=== PATIENT | male | born 1945 | race Caucasian/White ===

== ENCOUNTER 2024-02-16 20:53 | Inpatient (IN) | payer OTHER ==
[2024-02-16] MEDS ORDERED: ALBUTEROL SO4 2.5/IPRATROPIUM 0.5 INH SOL 3 ML VIAL.NEB. NEB ONE (21:30)
[2024-02-16] MEDS: ALBUTEROL SO4 2.5/IPRATROPIUM 0.5 INH SOL 3 ML VIAL.NEB. NEB ONE (21:38)
[2024-02-16 21:49] LABS: ALLENS TEST POSITIVE; ARTERIAL BLD GAS O2 SATURATION 92.4 % (95-98); ARTERIAL BLOOD GAS BASE EXCESS -7.2 mmol/L (-2-2); ARTERIAL BLOOD GAS PO2 68.6 mmHg (80-100); ARTERIAL BLOOD GAS pH 7.313 (7.350-7.450)
[2024-02-16 21:50] LABS: VENT MODE IPAP14; VENT RATE 14
[2024-02-16] MEDS ORDERED: methylPREDNISolone NA SUCC 125 MG/2 ML VIAL ONE (21:52)
[2024-02-16] MEDS: methylPREDNISolone NA SUCC 125 MG/2 ML VIAL IVPUSH ONE (21:57)
[2024-02-16 21:58] VITALS: BMI 21.5
[2024-02-16 22:04] LABS: HEMATOCRIT 40.1 % (35.4-49); HEMOGLOBIN 12.4 GM/dL (11.7-16.9); MCH 29.3 pg (25.7-33.7); MCHC 30.8 g/dl (32.0-35.9); MEAN CELL VOLUME 95.1 fl (80-96); MEAN PLT VOLUME 12.6 fl (7.5-11.1); PLATELET COUNT 265 10^3/uL (134-434); RBC 4.22 M/mm3 (4.00-5.60); RDW 16.8 % (11.9-15.9); WHITE BLOOD COUNT 25.6 K/mm3 (4.0-10.0)
[2024-02-16 22:11] LABS: INR 1.11 (0.83-1.09); PROTHROMBIN TIME (PATIENT) 12.5 SEC (9.7-13.0)
[2024-02-16 22:13] LABS: ACTIVATED PTT 29.1 SECONDS (25.2-36.5)
[2024-02-16] MEDS ORDERED: HALOPERIDOL LACTATE 5 MG/ML ONE ×2 (22:30→23:59)
[2024-02-16 22:32] LABS: CHLORIDE 123 mmol/L (98-107); POTASSIUM 5.8 mmol/L (3.5-5.1); SODIUM 155 mmol/L (136-145)
[2024-02-16 22:34] LABS: ALBUMIN 3.5 g/dl (3.4-5.0); ANION GAP 10 mmol/L (4-13); CALCIUM 9.8 mg/dL (8.5-10.1); CO2 22 mmol/L (21-32); GLUCOSE,RANDOM 159 mg/dL (74-106)
[2024-02-16] MEDS: HALOPERIDOL LACTATE 5 MG/ML IM ONE (22:35)
[2024-02-16 22:37] LABS: CREATININE 5.2 mg/dL (0.55-1.3); SGOT/AST 34 U/L (15-37); SGPT/ALT 25 U/L (13-61)
[2024-02-16 22:39] LABS: BILIRUBIN,TOTAL 0.7 mg/dL (0.2-1); TOT PROT 8.2 g/dl (6.4-8.2)
[2024-02-16 22:40] LABS: ALK PHOS 82 U/L (45-117)
[2024-02-16 22:56] LABS: ANISOCYTOSIS 2+; MACROCYTOSIS 0; TEAR DROP CELLS 1+
[2024-02-16 22:57] LABS: BLOOD UREA NITROGEN 110.9 mg/dL (7-18); LACTIC ACID 4.5 mmol/L (0.4-2.0)
[2024-02-16 23:06] VITALS: TEMP 98.8
[2024-02-16 23:23] LABS: VENOUS BASE EXCESS -6.4 mmol/L (-2-2); VENOUS O2 SATURATION 36.8 % (70-80); VENOUS PH 7.319 (7.310-7.410)
[2024-02-16] MEDS ORDERED: PIPERACILLIN/TAZOB 3.375 GM 3.375 GM/50 ML BAG IVPB ONE (23:24)
[2024-02-16] MEDS: PIPERACILLIN/TAZOB 3.375 GM 3.375 GM in DEXTROSE 5%-WATER - 50 ML IVPB ONE (23:35)
[2024-02-16 23:46] LABS: CHLORIDE 123 mmol/L (98-107); POTASSIUM 5.3 mmol/L (3.5-5.1); SODIUM 156 mmol/L (136-145)
[2024-02-16 23:47] LABS: CALCIUM 9.4 mg/dL (8.5-10.1)
[2024-02-16 23:48] LABS: ANION GAP 11 mmol/L (4-13); BLOOD UREA NITROGEN 111.2 mg/dL (7-18); CO2 22 mmol/L (21-32); GLUCOSE,RANDOM 137 mg/dL (74-106)
[2024-02-16 23:51] LABS: CREATININE 5.4 mg/dL (0.55-1.3)
[2024-02-17] MEDS: HALOPERIDOL LACTATE 5 MG/ML IM ONE (00:05)
[2024-02-17] MEDS ORDERED: VANCOMYCIN 1 GM PREMIX (F) 1 GM/200 ML BAG ONE (00:06)
[2024-02-17] MEDS: VANCOMYCIN 1,000 MG in DEXTROSE 5%-WATER - 250 ML IVPB ONE (00:09)
[2024-02-17] MEDS ORDERED: LORazepam 2 MG/ML SDV VIAL ONE (00:53)
[2024-02-17 01:14] LABS: ARTERIAL BLOOD GAS PO2 65.4 mmHg (80-100); ARTERIAL BLOOD GAS pH 7.246 (7.350-7.450)
[2024-02-17 01:17] LABS: ALLENS TEST POSITIVE
[2024-02-17 01:18] LABS: VENT MODE S/T IPAP 14 EPAP7; VENT RATE 14
[2024-02-17 02:21] VITALS: BP 0/0; PULSE 0; RESP 0
== END 2024-02-17 02:19 | disposition expired | DRG 189 ==
LOC: JER 20:53 → JERBED 02-17 00:49
PROVIDERS: ADMIT Internal Medicine; ATTEND Internal Medicine
DX: J96.01 Acute respiratory failure with hypoxia (principal); J81.0 Acute pulmonary edema; N17.9 Acute kidney failure, unspecified; E11.9 Type 2 diabetes mellitus without complications; E78.5 Hyperlipidemia, unspecified; G30.9 Alzheimer's disease, unspecified; F02.80 Dementia in other diseases classified elsewhere, unspecified severity, without behavioral disturbance, psychotic disturbance, mood disturbance, and anxiety; I11.0 Hypertensive heart disease with heart failure; I50.9 Heart failure, unspecified; R00.0 Tachycardia, unspecified
CPT/HCPCS: 0241U-QW; 36415; 36600; 71045-TC-FY; 80048; 80053; 82803; 83605; 83880; 84484; 85025; 85610; 85730; 86850; 86900; 86901; 87040; 93005; 93010; 99285-25